=== PATIENT | male | born 1975 | race Hispanic/Latino ===

== ENCOUNTER 2021-06-16 07:39 | Emergency (ER) | payer BC, OTHER | END 2021-06-16 08:18 | disposition home or self-care (01) | LOC: ERS 07:39 | DX: T14.8XXA Other injury of unspecified body region, initial encounter (principal); V69.9XXA Occupant (driver) (passenger) of heavy transport vehicle injured in unspecified traffic accident, initial encounter | CPT/HCPCS: 99283 ==